=== PATIENT | male | born 2000 | race Caucasian/White ===

== ENCOUNTER 2022-11-24 13:58 | Emergency (ER) | payer MEDICAID, SELFPAY ==
[~2022-11-24] VITALS: Ht 172.7 cm; Wt 181.0 kg
[2022-11-24 14:56] LABS: BASO # 0.1 10^3/uL (0.0-0.2); BASO % 0.5 % (0.0-1.0); EOS # 0.6 10^3/uL (0.0-0.5); HEMATOCRIT 45.2 % (42.0-52.0); HEMOGLOBIN 15.1 g/dl (13.5-17.5); LYMPH % 15.7 % (24.0-44.0); MEAN CORPUSCULAR HEMOGLOBIN 29.6 pg (27.0-33.0); MEAN CORPUSCULAR HGB CONC 33.4 g/dl (32.0-36.5); MEAN CORPUSCULAR VOLUME 88.6 fl (80.0-96.0); MONO % 7.8 % (2.0-8.0); NEUTROPHILS # 8.8 10^3/uL (1.5-8.5); NEUTROPHILS % 70.7 % (36.0-66.0); PLATELET COUNT, AUTOMATED 407 10^3/uL (150-450); WHITE BLOOD COUNT 12.5 10^3/uL (4.0-10.0)
[2022-11-24 15:19] LABS: LIPASE 20 U/L (12-53)
[2022-11-24 15:21] LABS: ALBUMIN 3.5 G/DL (3.2-5.2); ALKALINE PHOSPHATASE 92 U/L (46-116); ALT/SGPT 28 U/L (7.0-40); AST/SGOT 11 U/L (<34); BILIRUBIN,DIRECT 0.4 MG/DL (<0.4); BILIRUBIN,TOTAL 1.1 MG/DL (0.3-1.2); BLOOD UREA NITROGEN 7 MG/DL (9-23); CARBON DIOXIDE LEVEL 27 MMOL/L (20-31); CHLORIDE LEVEL 103 MMOL/L (98-107); CREATININE FOR GFR 0.78 MG/DL (0.70-1.30); GLOMERULAR FILTRATION RATE > 60.0 (>60); GLUCOSE, FASTING 112 MG/DL (60-100); POTASSIUM SERUM 3.9 MMOL/L (3.5-5.1); SODIUM LEVEL 138 MMOL/L (136-145); TOTAL PROTEIN 6.8 G/DL (5.7-8.2)
[2022-11-24 15:31] VITALS: BP 139/93; TEMP 98.6; O2SAT 96
[2022-11-24] MEDS ORDERED: NS 1,000 ML IV ONE (16:20)
[2022-11-24] MEDS ORDERED: ISOVUE-370 76% 100ML VIAL As Ordered ONE (16:35)
[2022-11-24] MEDS ORDERED: ONDA4TAB6 PO (19:39)
[2022-11-24] MEDS ORDERED: AMOX875T2 PO (19:39)
[2022-11-24] MEDS ORDERED: AUGMENTIN 875 MG TAB PO ONE (19:40)
== END 2022-11-24 19:51 | disposition home or self-care (01) ==
LOC: M ED 13:58
DX: K80.20 Calculus of gallbladder without cholecystitis without obstruction (principal); Z79.83 Long term (current) use of bisphosphonates; Z79.2 Long term (current) use of antibiotics
CPT/HCPCS: 74177; 76705; 80048; 80076; 83690; 85025; 96360; 96361; 99284; Q9967